=== PATIENT | male | born 1975 | race Caucasian/White ===

== ENCOUNTER 2017-01-01 19:09 | Emergency (ER) | payer OTHER ==
[2017-01-01 19:12] VITALS: BMI 28.0
[2017-01-01 19:23] VITALS: TEMP 98; O2SAT 98
--- NOTE | 2017-01-01 19:44 | ED PDOC ---
Arrival/HPI - General Historian: Patient - History of Present Illness Time/Duration: Prior to Arrival Symptom Onset: Sudden Symptom Course: Unchanged Quality: Burning Severity Level: 9 - General Chief Complaint: Chest Pain Time Seen by Provider: 01/01/17 19:23 - History of Present Illness Narrative History of Present Illness (Text): 41 M with pmh of HTN, Hyperlipidemia, and GERD presents to the ED with chest pain. Pt states that his pain was present 3 isolated times this past week which lasted aprox 30 min and subsided. Today the pain as been worse accompanied by sob. He states the pain is retro sternal, burning sensation, non radiating and 8/10 in severity. Pt also states he has been under more stress this week. Denies any diaphoresis, n/v. He denies any barnett, dizziness, f/c, palpitations, abd pain, n/v/d. PMD: Dr Le ([facility]) Past Medical History - Provider Review Nursing Documentation Reviewed: Yes - Cardiac Hx Cardiac Disorders: Yes Hx Hypertension: Yes - Pulmonary Hx Respiratory Disorders: No - Neurological Hx Neurological Disorder: No - HEENT Hx HEENT Disorder: Yes (H/O SURGERY RIGHT EYE DUE TO EXCESS TEARING.) Other/Comment: right eye sx due to excess tearing - Renal Hx Renal Disorder: No - Endocrine/Metabolic Hx Endocrine Disorders: No - Hematological/Oncological Hx Blood Disorders: No - Integumentary Hx Dermatological Disorder: No - Musculoskeletal/Rheumatological Hx Falls: No - Gastrointestinal Hx Gastrointestinal Disorders: Yes Hx Gastroesophageal Reflux: Yes Other/Comment: EPIGASTRIC PAIN - Genitourinary/Gynecological Hx Genitourinary Disorders: No - Psychiatric Hx Psychophysiologic Disorder: No Hx Substance Use: No - Surgical History Hx Eye Surgery: Yes (OD) - Anesthesia Hx Anesthesia: No Hx Anesthesia Reactions: No Hx Malignant Hyperthermia: No Family/Social History - Physician Review Nursing Documentation Reviewed: Yes Family/Social History: No Known Family HX Smoking Status: Never Smoked Hx Alcohol Use: No Hx Substance Use: No Allergies/Home Meds Allergies/Adverse Reactions: Allergies kiwi Allergy (Verified 01/01/17 19:23) PAIN Home Medications: Home Meds Medication Instructions Recorded Confirmed Bp Medicine 1 tab PO DAILY 01/01/17 Review of Systems - Physician Review All systems were reviewed & negative as marked: Yes - Review of Systems Eyes: absent: Vision Changes ENT: absent: Hearing Changes Respiratory: SOB. absent: Cough, Sputum Cardiovascular: absent: Chest Pain, Palpitations Gastrointestinal: absent: Abdominal Pain Psychiatric: Anxiety Physical Exam Temperature: Afebrile Blood Pressure: Hypertensive Pulse: Regular Respiratory Rate: Normal Appearance: Positive for: Well-Appearing, Non-Toxic, Comfortable Pain Distress: None Mental Status: Positive for: Alert and Oriented X 3 - Systems Exam Head: Present: Atraumatic, Normocephalic Pupils: Present: PERRL Extroacular Muscles: Present: EOMI Conjunctiva: Present: Normal Mouth: Present: Moist Mucous Membranes Neck: Present: Normal Range of Motion Respiratory/Chest: Present: Clear to Auscultation, Good Air Exchange. No: Respiratory Distress, Accessory Muscle Use Cardiovascular: Present: Regular Rate and Rhythm, Normal S1, S2. No: Murmurs Abdomen: Present: Normal Bowel Sounds. No: Tenderness, Distention, Peritoneal Signs Upper Extremity: Present: Normal Inspection. No: Cyanosis, Edema Lower Extremity: Present: Normal Inspection. No: Edema Neurological: Present: GCS=15, CN II-XII Intact, Speech Normal Skin: Present: Warm, Dry, Normal Color. No: Rashes Psychiatric: Present: Alert, Oriented x 3, Normal Insight, Normal Concentration Medical Decision Making ED Course and Treatment: Impression: 41 M with pmh of HTN, Hyperlipidemia, and GERD presents to the ED with chest pain. Differential Diagnosis: r/o TN, NSTEMI, / Anxiety / GERD Plan: - CBC, CMP, Cardiac iso, BNP - EKG stat - Aspirin, 325mg PO stat - Nitrogylcerin .4mg SL - Protonix 40mg IVP stat - Reassess and disposition 01/01/17 19:57 Pt resting comfortably in bed. No acute distress. 01/01/17 20:15 Pt refusing all medication stating his symptoms have resolved. The importance of taking the meds were clearly explained to him in detail. Pt verbalized understating. 01/01/17 20:47 Pt still refusing all treatment. Now requesting to leave AMA. Explained to the pt in detail the risk of leaving AMA including but not limited to , end organ damage and permanent disability and pt still requests to leave. Pt verbalized understanding. EKG: Ordered, reviewed, and independently interpreted the EKG. Rate: 75 BPM Rhythm: NSR Interpretation: No ST-segment elevations or depressions, no T-wave inversions, normal intervals. Comparison:12/05/15 01/01/17 20:55 (Ranjan Hobbs) 01/01/17 20:56 Patient seen and examined with resident Came up with treatment and disposition plan with resident The patient refuses admission and wishes to leave the Emergency Department against my medical advice. Patient was told that admission to the hospital is necessary and a full explanation of the reasons why was given, and understood by patient. The risks of leaving were explained and include worsening of condition, and permanent disability and from an undiagnosed or untreated condition. The patient accepts these risks, and is in my judgment is competent and capable of understanding the clinical situation and my explanation of the risks of leaving. Patient was given the opportunity to ask questions and change mind. The patient was instructed regarding the best care for the present symptoms, and to follow up with Dr. Le as soon as possible, or return to the Emergency Department at any time for continuing care. (En Spann) - Lab Interpretations Lab Results: 01/01/17 19:21 01/01/17 19:21 Lab Results 01/01/17 19:21: Sodium 137, Potassium 3.5 L, Chloride 101, Carbon Dioxide 28, Anion Gap 12, BUN 18, Creatinine 0.8, Est GFR ( Amer) > 60, Est GFR (Non- Af Amer) > 60, Random Glucose 97, Calcium 10.0, Total Bilirubin 0.4, AST 35, ALT 48, Alkaline Phosphatase 53, Lactate Dehydrogenase 417, Total Creatine Kinase 90, Troponin I < 0.01, NT-Pro-B Natriuret Pep < 11.1, Total Protein 7.8, Albumin 4.4, Globulin 3.4, Albumin/Globulin Ratio 1.3 01/01/17 19:21: WBC 6.8 D, RBC 5.32, Hgb 15.9, Hct 45.1, MCV 84.8, MCH 29.9, MCHC 35.3, RDW 13.1, Plt Count 272, MPV 11.2 H, Gran % 42.0 L, Lymph % (Auto) 47.1 H, [place] % (Auto) 8.0 H, Eos % (Auto) 2.5, Baso % (Auto) 0.4, Gran # 2.84, Lymph # 3.2, [place] # 0.5, Eos # 0.2, Baso # 0.03 - Medication Orders Current Medication Orders: Discontinued Medications Aspirin (Aspirin) 325 mg PO STAT STA Stop: 01/01/17 19:34 Last Admin: 01/01/17 20:10 Dose: Not Given Non-Admin Reason: Patient Refused Aspirin (Ecotrin) Confirm Administered Dose 325 mg PO .STK-MED ONE Stop: 01/01/17 20:02 Nitroglycerin (Nitrostat Sl Tab) 0.4 mg SL Q5M FERMIN Stop: 01/01/17 19:56 Last Admin: 01/01/17 20:11 Dose: Not Given Non-Admin Reason: Patient Refused Pantoprazole Sodium (Protonix Inj) 40 mg IVP STAT STA Stop: 01/01/17 19:35 Last Admin: 01/01/17 20:10 Dose: Not Given Non-Admin Reason: Patient Refused Disposition/Present on Arrival - Present on Arrival Any Indicators Present on Arrival: No History of DVT/PE: No History of Uncontrolled Diabetes: No Urinary Catheter: No History of Decub. Ulcer: No History Surgical Site Infection Following: None - Disposition Have Diagnosis and Disposition been Completed?: Yes Disposition Time: 20:45 - Disposition Diagnosis: Chest pain Disposition: HOME/ ROUTINE Patient Problems: Current Active Problems Problem Status Onset Chest pain Acute Condition: GUARDED Discharge Instructions (ExitCare): Chest Pain (ED) Referrals: Rupesh Le MD [Primary Care Provider] - Follow up with primary
[2017-01-01] MEDS ORDERED: Aspirin 325 mg EC Tablets PO ONE (20:01)
[2017-01-01 20:06] LABS: ADD MANUAL DIFF? NO
[2017-01-01 20:13] LABS: BASO # 0.03 K/mm3 (0.0-2.0); BASO % 0.4 % (0.0-3.0); EOS # 0.2 (0.0-0.7); EOS % 2.5 % (1.5-5.0); GRAN # 2.84 (1.4-6.5); HEMATOCRIT 45.1 % (42.0-52.0); LYMPH # 3.2 (1.2-3.4); LYMPH % 47.1 % (22.0-35.0); MEAN CELL VOLUME 84.8 fL (80.0-105.0); MEAN CORPUSCULAR HEMOGLOBIN 29.9 pg (25.0-35.0); MEAN CORPUSCULAR HGB CONC 35.3 g/dl (31.0-37.0); MEAN PLATELET VOLUME 11.2 fl (7.0-11.0); MONO # 0.5 (0.1-0.6); PLATELET COUNT 272 10^3/uL (120.0-450.0); RED CELL DISTRIBUTION WIDTH 13.1 % (11.5-14.5); WHITE BLOOD COUNT 6.8 10^3/ul (4.5-11.0)
[2017-01-01 20:19] LABS: ALB/GLOB RATIO 1.3 (1.1-1.8); ALKALINE PHOSPHATASE 53 U/L (38-133); ALT/SGPT 48 U/L (7-56); AST/SGOT 35 U/L (15-59); BILIRUBIN,TOTAL 0.4 mg/dL (0.2-1.3); BLOOD UREA NITROGEN 18 mg/dL (7-21); CARBON DIOXIDE 28 mmol/L (21-33); CHLORIDE 101 mmol/L (98-107); GFR AFRICAN-AMERICAN > 60; GLUCOSE,RANDOM 97 mg/dL (70-110); POTASSIUM 3.5 mmol/L (3.6-5.0); SODIUM 137 mmol/L (132-148); TOTAL PROTEIN 7.8 g/dL (5.8-8.3)
[2017-01-01 20:45] LABS: TROPONIN I < 0.01 ng/mL
[2017-01-01 21:03] VITALS: BP 120/75; PULSE 74; RESP 16
--- NOTE | 2017-01-02 15:21 | CARD ---
APPROVED REPORT EKG Measurement Heart [id number] <Conclusion> Normal sinus rhythm Normal ECG
== END 2017-01-01 21:17 | disposition home or self-care (01) ==
LOC: ED 19:09
DX: R07.9 Chest pain, unspecified (principal); I10 Essential (primary) hypertension; E78.5 Hyperlipidemia, unspecified; K21.9 Gastro-esophageal reflux disease without esophagitis

== ENCOUNTER 2017-01-04 14:49 | Emergency (ER) | payer OTHER ==
[2017-01-04 14:50] VITALS: BMI 28.0
[2017-01-04 15:03] VITALS: PULSE 85; RESP 19; O2SAT 96
[2017-01-04 15:05] VITALS: TEMP 98.2
--- NOTE | 2017-01-04 15:11 | ED PDOC ---
Arrival/HPI <Claude Spanniy - Last Filed: 01/04/17 15:38> - General Historian: Patient <Lois Malone - Last Filed: 01/05/17 00:38> - General Chief Complaint: Weakness/Neurological Deficit Time Seen by Provider: 01/04/17 14:51 - History of Present Illness Narrative History of Present Illness (Text): 01/04/17 15:07 41yo male with PMHx of hypertension and hypercholestrol present with complaint of left arm pain and paresthesia s/p IV insertion 4days ago. Patient states he started experiencing pain immediately after his blood was taken from here in [place] 4days ago. States he started experiencing paresthesia of his fingers afterward. He notes pain with full extension of his left arm and paresthesia of his fingers that radiates up to his anticubital fossa area, where the blood was drawn. He otherwise denies weakness, visual changes, dysathria, headache, chest pain, SOD, diaphoresis, dizziness, any other complaint. (Lois Malone) Past Medical History - Provider Review Nursing Documentation Reviewed: Yes - Infectious Disease Hx of Infectious Diseases: None - Cardiac Hx Cardiac Disorders: Yes Hx Hypertension: Yes - Pulmonary Hx Respiratory Disorders: No - Neurological Hx Neurological Disorder: No - HEENT Hx HEENT Disorder: Yes (H/O SURGERY RIGHT EYE DUE TO EXCESS TEARING.) Other/Comment: right eye sx due to excess tearing - Renal Hx Renal Disorder: No - Endocrine/Metabolic Hx Endocrine Disorders: No - Hematological/Oncological Hx Blood Disorders: No - Integumentary Hx Dermatological Disorder: No - Musculoskeletal/Rheumatological Hx Falls: No - Gastrointestinal Hx Gastrointestinal Disorders: Yes Hx Gastroesophageal Reflux: Yes Other/Comment: EPIGASTRIC PAIN - Genitourinary/Gynecological Hx Genitourinary Disorders: No - Psychiatric Hx Psychophysiologic Disorder: No Hx Substance Use: No - Surgical History Hx Eye Surgery: Yes (OD) - Anesthesia Hx Anesthesia: Yes Hx Anesthesia Reactions: No Hx Malignant Hyperthermia: No <Lois Malone - Last Filed: 01/05/17 00:38> Family/Social History - Physician Review Nursing Documentation Reviewed: Yes Family/Social History: Unknown Family HX Smoking Status: Never Smoked Hx Alcohol Use: No Hx Substance Use: No <Lois Malone A - Last Filed: 01/05/17 00:38> Allergies/Home Meds <Ab Spanny - Last Filed: 01/04/17 15:38> <Lois Malone A - Last Filed: 01/05/17 00:38> Allergies/Adverse Reactions: Allergies kiwi Allergy (Verified 01/04/17 15:03) PAIN Home Medications: Home Meds Medication Instructions Recorded Confirmed Bp Medicine 1 tab PO DAILY 01/01/17 01/04/17 Review of Systems - Physician Review All systems were reviewed & negative as marked: Yes - Review of Systems Constitutional: Normal Eyes: Normal ENT: Normal Respiratory: Normal Cardiovascular: Normal Gastrointestinal: Normal Genitourinary Male: Normal Musculoskeletal: Normal Skin: Normal Neurological: Normal Endocrine: Normal Hemo/Lymphatic: Normal Psychiatric: Normal <Lois Malone A - Last Filed: 01/05/17 00:38> Physical Exam Vital Signs Reviewed: Yes Temperature: Afebrile Blood Pressure: Normal Pulse: Regular Respiratory Rate: Normal Appearance: Positive for: Well-Appearing, Non-Toxic, Comfortable Pain Distress: None Mental Status: Positive for: Alert and Oriented X 3 - Systems Exam Head: Present: Atraumatic, Normocephalic Pupils: Present: PERRL Extroacular Muscles: Present: EOMI Conjunctiva: Present: Normal Mouth: Present: Moist Mucous Membranes Neck: Present: Normal Range of Motion Respiratory/Chest: Present: Clear to Auscultation, Good Air Exchange. No: Respiratory Distress, Accessory Muscle Use Cardiovascular: Present: Regular Rate and Rhythm, Normal S1, S2. No: Murmurs Abdomen: Present: Normal Bowel Sounds. No: Tenderness, Distention, Peritoneal Signs Back: Present: Normal Inspection Upper Extremity: Present: Normal Inspection, Normal ROM, NORMAL PULSES, Tenderness (Focal tenderness over left anticubital fossa area ), Neurovascularly Intact, Capillary Refill < 2s, Norm 2-Pt Discrimination, Other ( Strenght 5/5 on left arm. No fullness. No crepitus. No sign of infection). No: Cyanosis, Edema, Swelling, Erythema, Temperature Abnormalties, Deformity Lower Extremity: Present: Normal Inspection. No: Edema Neurological: Present: GCS=15, CN II-XII Intact, Speech Normal, Motor Func Grossly Intact, Normal Sensory Function, Normal Cerebellar Funct, Norm Deep Tendon Reflexes, Normal 2Pt Descrimination, Other (PT have no focal neurological deficit) Skin: Present: Warm, Dry, Normal Color. No: Rashes Psychiatric: Present: Alert, Oriented x 3, Normal Insight, Normal Concentration <Lois Malone - Last Filed: 01/05/17 00:38> Vital Signs Temp Pulse Resp BP Pulse Ox 01/04/17 15:36 126/76 01/04/17 14:56 98.2 F 85 19 139/100 H 96 01/04/17 14:50 98.2 F 85 19 139/100 H 96 Medical Decision Making <En Spann - Last Filed: 01/04/17 15:38> <Lois Malone A - Last Filed: 01/05/17 00:38> ED Course and Treatment: 01/04/17 15:38 41-year-old male with 40s duration of paresthesias to his left forearm. Patient states this started after IV insertion. 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 No neuro deficits on examination. Patient has good 2 point needle prick sensation/discrimination. Distal neurovascular fully intact with good color, tone, pulses. Left antecubital fossa at the IV insertion site, no bruising, no fullness, no erythema, no warmth. Patient instructed to follow up with a neurologist. (En Spann) 01/04/17 15:37 Pt Pt presented with stated complaint. He had no focal neurological deficit. He was NVI. Strength was 5/5. Proximal and distal pulses was intact. No sign of infection was noted. Pt was reassured. He also seen by Dr. Spann. Referred to a Neurologist. Advised TRT ED for any new or worsening symptoms. (Lois Malone) - PA / [employer] / Resident Statement MD/DO has examined the patient and agrees with the treatment plan. <En Spann - Last Filed: 01/04/17 15:38> Disposition/Present on Arrival <En Spann - Last Filed: 01/04/17 15:38> - Present on Arrival Any Indicators Present on Arrival: No History of DVT/PE: No History of Uncontrolled Diabetes: No Urinary Catheter: No History of Decub. Ulcer: No History Surgical Site Infection Following: None - Disposition Have Diagnosis and Disposition been Completed?: Yes Disposition Time: 15:20 Patient Plan: Discharge <Lois Malone - Last Filed: 01/05/17 00:38> - Disposition Diagnosis: Arm pain, Paresthesia Disposition: HOME/ ROUTINE Condition: STABLE Discharge Instructions (ExitCare): Arm Pain (ED) Additional Instructions: Follow up with your Doctor Return to ED for any new or worsening symptoms Referrals: Rupesh Le MD [Primary Care Provider] - Follow up with primary Rajiv Abraham MD [Staff Provider] - Follow up with primary
[2017-01-04 15:36] VITALS: BP 126/76
== END 2017-01-04 15:39 | disposition home or self-care (01) ==
LOC: ED 14:49
DX: M79.602 Pain in left arm (principal); R20.9 Unspecified disturbances of skin sensation